=== PATIENT | male | born 1970 | race Caucasian/White ===

== ENCOUNTER 2016-07-28 20:53 | Emergency (ER) | payer BC ==
[~2016-07-28] VITALS: Ht 165.1 cm; Wt 124.0 kg
[2016-07-28 20:56] VITALS: Ht 165.1 cm; Wt 124.0 kg
[2016-07-29] MEDS ORDERED: NITROGLYCERIN 2% 1 GM OINT PKT TD STA (00:16)
[2016-07-29] MEDS ORDERED: ONDANSETRON 4 MG INJ IV STA (00:16)
[2016-07-29] MEDS ORDERED: morphine 2 MG INJ IV STA (00:16)
[2016-07-29 00:30] VITALS: TEMP 98
[2016-07-29 01:11] VITALS: PULSE 94
--- NOTE | 2016-07-29 01:13 | RADRPT ---
PROCEDURE: XR Chest. CLINICAL INDICATION: Chest pain TECHNIQUE: AP Portable chest. COMPARISON: No pertinent prior examinations were submitted for comparison. FINDINGS: The cardiomediastinal silhouette is normal. The lungs are clear. The osseous structures are unrema rkable. IMPRESSION: No acute findings. RPTAT: HIKT .Amador Benjamin MD, MD Date Time Electronically viewed and signed by .Amador Benjamin MD, MD on 07/29/2016 01:12 .T/
[2016-07-29 01:19] LABS: ADD SCAN DIFF NO
[2016-07-29 01:22] LABS: BASOPHIL # 0.1 10^3/ul (0.0-0.1); BASOPHILS % 0.5 % (0.0-2.0); EOSINOPHILS # 0.1 10^3/ul (0.0-0.5); HEMATOCRIT 50.7 % (42.0-52.0); HEMOGLOBIN 16.6 g/dl (14.0-18.0); LYMPHOCYTES # 2.2 10^3/ul (0.8-2.9); LYMPHOCYTES % 20.6 % (15.0-51.0); MEAN CORPUSCULAR HEMOGLOBIN 27.9 pg (29.0-33.0); MEAN CORPUSCULAR HGB CONC 32.7 g/dl (32.0-37.0); MEAN CORPUSCULAR VOLUME 85.2 fl (82.0-101.0); MEAN PLATELET VOLUME 10.7 fl (7.4-10.4); MONOCYTE # 0.6 10^3/ul (0.3-0.9); MONOCYTES % 5.9 % (0.0-11.0); NEUTROPHIL # 7.5 10^3/ul (1.6-7.5); NEUTROPHILS % 71.5 % (39.0-77.0); PLATELET COUNT 269 10^3/UL (140-415); RED BLOOD COUNT 5.95 10^6/ul (4.70-6.10); RED CELL DISTRIBUTION WIDTH 14.2 % (11.5-14.5); WHITE BLOOD COUNT 10.5 10^3/ul (4.8-10.8)
[2016-07-29 01:33] LABS: INR 1.03; PROTIME 13.5 Sec (12.2-14.2); PT RATIO 1.1
[2016-07-29 01:34] LABS: PARTIAL THROMBOPLASTIN TIME 29.3 Sec (25.0-35.0)
[2016-07-29 01:40] LABS: ALBUMIN 4.4 g/dl (3.3-4.9); CHLORIDE 108 mmol/L (97-110); POTASSIUM 3.9 mmol/L (3.5-5.1); SODIUM 149 mmol/L (135-144)
[2016-07-29 01:42] LABS: ANION GAP 18 (8-16); BILIRUBIN,INDIRECT 0.5 mg/dl (0-1.1); BILIRUBIN,TOTAL 0.5 mg/dl (0.2-1.3); CARBON DIOXIDE 27 mmol/L (21-31); CREATININE 0.78 mg/dl (0.61-1.24)
[2016-07-29 01:43] LABS: ALANINE AMINOTRANSFERASE 47 IU/L (13-69); ALBUMIN/GLOBULIN RATIO 1.15; ALKALINE PHOSPHATASE 91 IU/L (42-121); ASPARTATE AMINO TRANSFERASE 34 IU/L (15-46); BLOOD UREA NITROGEN 21 mg/dl (7-20); CALCIUM 9.5 mg/dl (8.4-10.2); GLUCOSE 98 mg/dl (70-220); TOTAL PROTEIN 8.2 g/dl (6.1-8.1)
[2016-07-29 01:49] LABS: B-TYPE NATRIURETIC PEPTIDE 49 PG/ML (0-125)
[2016-07-29 02:04] LABS: TROPONIN-I < 0.012 ng/ml (0.00-0.12)
--- NOTE | 2016-07-29 02:13 | ERD ---
ER Documentation Chief Complaint Date/Time DATE: 07/29/16 TIME: 02:11 Chief Complaint CHEST PAIN WITH SOB X 4 HOURS HPI This is a 46-year-old male with chest pain and shortness of breath for the past 4 hours. Patient says he was mildly anxious. Says chest pain was sharp with associated palpitations and he felt very anxious at that time. Patient to be examined under increased stress secondary to work. Denies any other current issues. ROS All systems reviewed and are negative except as per history of present illness. Allergies Allergies: Coded Allergies: No Known Allergy (Unverified , 07/29/16) Physical Exam Vitals Vital Signs Date Time Temp Pulse Resp B/P Pulse Ox O2 Delivery O2 Flow Rate FiO2 07/29/16 01:20 Nasal Cannula 2 07/29/16 01:11 94 18 138/91 96 Room Air 07/29/16 01:00 93 07/29/16 00:30 98.0 92 20 148/92 95 Room Air 07/28/16 20:56 98.6 93 24 162/81 97 Physical Exam Const: [] Head: Atraumatic Eyes: Normal Conjunctiva ENT: Normal External Ears, Nose and Mouth. Neck: Full range of motion..~ No meningismus. Resp: Clear to auscultation bilaterally Cardio: Regular rate and rhythm, no murmurs Abd: Soft, non tender, non distended. Normal bowel sounds Skin: No petechiae or rashes Back: No midline or flank tenderness Ext: No cyanosis, or edema Neur: Awake and alert Psych: Normal Mood and Affect Result Diagram: 07/29/16 0030 07/29/16 0030 Results 24 hrs Laboratory Tests Test 07/29/16 00:30 Activated Partial Thromboplast Time 29.3Sec Alanine Aminotransferase (ALT/SGPT) 47IU/L Albumin 4.4g/dl Albumin/Globulin Ratio 1.15 Alkaline Phosphatase 91IU/L Anion Gap 18 Aspartate Amino Transf (AST/SGOT) 34IU/L B-Type Natriuretic Peptide 49PG/ML Basophils # 0.110^3/ul Basophils % 0.5% Blood Urea Nitrogen 21mg/dl Calcium Level 9.5mg/dl Carbon Dioxide Level 27mmol/L Chloride Level 108mmol/L Creatinine 0.78mg/dl Direct Bilirubin 0.00mg/dl Eosinophils # 0.110^3/ul Eosinophils % 1.0% Globulin 3.80g/dl Glucose Level 98mg/dl Hematocrit 50.7% Hemoglobin 16.6g/dl INR International Normalized Ratio 1.03 Indirect Bilirubin 0.5mg/dl Lymphocytes # 2.210^3/ul Lymphocytes % 20.6% Mean Corpuscular Hemoglobin 27.9pg Mean Corpuscular Hemoglobin Concent 32.7g/dl Mean Corpuscular Volume 85.2fl Mean Platelet Volume 10.7fl Monocytes # 0.610^3/ul Monocytes % 5.9% Neutrophils # 7.510^3/ul Neutrophils % 71.5% Nucleated Red Blood Cells # 0.010^3/ul Nucleated Red Blood Cells % 0.0/100WBC Platelet Count 98059^3/UL Potassium Level 3.9mmol/L Prothrombin Time 13.5Sec Prothrombin Time Ratio 1.1 Red Blood Count 5.9510^6/ul Red Cell Distribution Width 14.2% Sodium Level 149mmol/L Total Bilirubin 0.5mg/dl Total Protein 8.2g/dl Troponin I < 0.012ng/ml White Blood Count 10.510^3/ul Current Medications Medications (Trade) Dose Ordered Sig/Stephane Route PRN Reason Start Time Stop Time Status Last Admin Dose Admin Nitroglycerin (Nitroglycerin 2% Oint) 1 inch ONCE STAT TD 07/29/16 00:16 07/29/16 00:22 DC 07/29/16 00:32 Morphine Sulfate (morphine) 2 mg ONCE STAT IV 07/29/16 00:16 07/29/16 00:22 DC 07/29/16 00:31 Ondansetron HCl (Zofran Inj) 4 mg ONCE STAT IV 07/29/16 00:16 07/29/16 00:22 DC 07/29/16 00:31 Procedures/MDM EKG: Rate/Rhythm: Normal Sinus Rhythm QRS, ST, T-waves: No changes consistent w/ acute ischemia Impression: No evidence of ischemia or arrhythmia Chest X-ray 1V Interpreted by me: Soft Tissue: No acute abnormalities Bones: No acute abnormalities Mediastinum/Cardiac Silhouette/Lungs: No acute abnormalities WALT score 0 Patient's thoracic symptoms have stabilized while in the department and are stable for outpatient follow up. Exam and work up not consistent w/ ischemia, arrhythmia, PE or dissection. Departure Diagnosis: Primary Impression: Chest pain Chest pain type: unspecified Qualified Code: R07.9 - Chest pain, unspecified type Additional Impression: Anxiety Condition: Stable VERO FLANNERY Jul 29, 2016 02:12
[2016-07-29] MEDS ORDERED: LORA-441 PO (02:14)
[2016-07-29 03:08] VITALS: BP 115/82; RESP 20
== END 2016-07-29 03:10 | disposition home or self-care (01) ==
LOC: E/R 20:53
DX: R07.9 Chest pain, unspecified (principal); F41.9 Anxiety disorder, unspecified
CPT/HCPCS: 36415; 71010; 80053; 83880; 84484; 85025; 85610; 85730; 96374; 96375; 99285; J2270; J2405; 93005